=== PATIENT | female | born 1960 | race Caucasian/White ===

== ENCOUNTER → 2019-11-30 | Outpatient (CLI) | payer BC | LOC: LAB.O 16:39 | PROVIDERS: ATTEND Family Medicine | DX: M06.9 Rheumatoid arthritis, unspecified (principal) ==

== ENCOUNTER → 2020-01-14 | Outpatient (CLI) | payer BC | LOC: LAB.O 13:42 | PROVIDERS: ATTEND Internal Medicine | DX: C20 Malignant neoplasm of rectum (principal) ==

== ENCOUNTER → 2020-01-24 | Outpatient (CLI) | payer BC | LOC: ECHO 10:12 | PROVIDERS: ATTEND Internal Medicine Cardiovascular Disease | DX: C20 Malignant neoplasm of rectum (principal); I34.0 Nonrheumatic mitral (valve) insufficiency; I36.1 Nonrheumatic tricuspid (valve) insufficiency; Z92.21 Personal history of antineoplastic chemotherapy ==